=== PATIENT | male | born 1950 | race Caucasian/White ===

== ENCOUNTER 2024-06-30 13:20 | Outpatient (CLI) | payer MEDICARE, BC | END 2024-06-30 13:21 | disposition home or self-care (01) | LOC: CSHWCC 13:20 | PROVIDERS: ATTEND Nurse Practitioner Family | DX: N30.41 Irradiation cystitis with hematuria (principal) | CPT/HCPCS: 99213; G0463 ==

== ENCOUNTER 2024-07-17 14:30 | Outpatient (CLI) | payer MEDICARE, BC | END 2024-07-17 14:31 | disposition home or self-care (01) | LOC: CSHRAD 14:30 | PROVIDERS: ATTEND Nurse Practitioner Family | DX: N30.41 Irradiation cystitis with hematuria (principal) | CPT/HCPCS: 71046 ==

== ENCOUNTER 2024-08-04 08:56 | Outpatient (CLI) | payer MEDICARE, BC | END 2024-08-04 08:57 | disposition home or self-care (01) | LOC: CSHWCC 08:56 | PROVIDERS: ATTEND Nurse Practitioner Family | DX: N30.41 Irradiation cystitis with hematuria (principal) | CPT/HCPCS: G0277 ==

== ENCOUNTER 2024-08-05 09:00 | Outpatient (CLI) | payer MEDICARE, BC | END 2024-08-05 09:01 | disposition home or self-care (01) | LOC: CSHWCC 09:00 | PROVIDERS: ATTEND Nurse Practitioner Family | DX: T70.0XXD Otitic barotrauma, subsequent encounter (principal); N30.41 Irradiation cystitis with hematuria | CPT/HCPCS: G0277 ==

== ENCOUNTER 2024-08-06 08:54 | Outpatient (CLI) | payer MEDICARE, BC | END 2024-08-06 08:55 | disposition home or self-care (01) | LOC: CSHWCC 08:54 | PROVIDERS: ATTEND Nurse Practitioner Family | DX: T70.0XXD Otitic barotrauma, subsequent encounter (principal); N30.41 Irradiation cystitis with hematuria | CPT/HCPCS: G0277 ==

== ENCOUNTER 2024-08-07 09:21 | Outpatient (CLI) | payer MEDICARE, BC | END 2024-08-07 09:22 | disposition home or self-care (01) | LOC: CSHWCC 09:21 | PROVIDERS: ATTEND Nurse Practitioner Family | DX: T70.0XXD Otitic barotrauma, subsequent encounter (principal); N30.41 Irradiation cystitis with hematuria | CPT/HCPCS: G0277 ==

== ENCOUNTER 2024-08-08 09:50 | Outpatient (CLI) | payer MEDICARE, BC | END 2024-08-08 09:51 | disposition home or self-care (01) | LOC: CSHWCC 09:50 | PROVIDERS: ATTEND Nurse Practitioner Family | DX: T70.0XXD Otitic barotrauma, subsequent encounter (principal); N30.41 Irradiation cystitis with hematuria | CPT/HCPCS: G0277 ==

== ENCOUNTER 2024-08-11 09:04 | Outpatient (CLI) | payer MEDICARE, BC | END 2024-08-11 09:05 | disposition home or self-care (01) | LOC: CSHWCC 09:04 | PROVIDERS: ATTEND Nurse Practitioner Family | DX: T70.0XXD Otitic barotrauma, subsequent encounter (principal); N30.41 Irradiation cystitis with hematuria | CPT/HCPCS: G0277 ==

== ENCOUNTER 2024-08-12 08:33 | Outpatient (CLI) | payer MEDICARE, BC | END 2024-08-12 08:34 | disposition home or self-care (01) | LOC: CSHWCC 08:33 | PROVIDERS: ATTEND Nurse Practitioner Family | DX: T70.0XXD Otitic barotrauma, subsequent encounter (principal); N30.41 Irradiation cystitis with hematuria | CPT/HCPCS: G0277 ==

== ENCOUNTER 2024-08-13 08:31 | Outpatient (CLI) | payer MEDICARE, BC | END 2024-08-13 08:32 | disposition home or self-care (01) | LOC: CSHWCC 08:31 | PROVIDERS: ATTEND Nurse Practitioner Family | DX: T70.0XXD Otitic barotrauma, subsequent encounter (principal); N30.41 Irradiation cystitis with hematuria | CPT/HCPCS: G0277 ==

== ENCOUNTER 2024-08-15 08:19 | Outpatient (CLI) | payer MEDICARE, BC | END 2024-08-15 08:20 | disposition home or self-care (01) | LOC: CSHWCC 08:19 | PROVIDERS: ATTEND Nurse Practitioner Family | DX: T70.0XXA Otitic barotrauma, initial encounter (principal); N30.41 Irradiation cystitis with hematuria | CPT/HCPCS: G0277 ==

== ENCOUNTER 2024-08-18 09:05 | Outpatient (CLI) | payer MEDICARE, BC | END 2024-08-18 09:06 | disposition home or self-care (01) | LOC: CSHWCC 09:05 | PROVIDERS: ATTEND Nurse Practitioner Family | DX: N30.41 Irradiation cystitis with hematuria (principal); T70.0XXD Otitic barotrauma, subsequent encounter | CPT/HCPCS: G0277 ==

== ENCOUNTER 2024-08-19 09:23 | Outpatient (CLI) | payer MEDICARE, BC | END 2024-08-19 09:24 | disposition home or self-care (01) | LOC: CSHWCC 09:23 | PROVIDERS: ATTEND Nurse Practitioner Family | DX: T70.0XXD Otitic barotrauma, subsequent encounter (principal); N30.41 Irradiation cystitis with hematuria | CPT/HCPCS: G0277 ==

== ENCOUNTER 2024-08-22 09:19 | Outpatient (CLI) | payer MEDICARE, BC | END 2024-08-22 09:20 | disposition home or self-care (01) | LOC: CSHWCC 09:19 | PROVIDERS: ATTEND Nurse Practitioner Family | DX: T70.0XXD Otitic barotrauma, subsequent encounter (principal); N30.41 Irradiation cystitis with hematuria | CPT/HCPCS: G0277 ==

== ENCOUNTER 2024-08-25 09:34 | Outpatient (CLI) | payer MEDICARE, BC | END 2024-08-25 09:35 | disposition home or self-care (01) | LOC: CSHWCC 09:34 | PROVIDERS: ATTEND Nurse Practitioner Family | DX: T70.0XXD Otitic barotrauma, subsequent encounter (principal); N30.41 Irradiation cystitis with hematuria | CPT/HCPCS: G0277 ==

== ENCOUNTER 2024-08-26 08:00 | Outpatient (CLI) | payer MEDICARE, BC | END 2024-08-26 08:01 | disposition home or self-care (01) | LOC: CSHWCC 08:00 | PROVIDERS: ATTEND Nurse Practitioner Family | DX: T70.0XXD Otitic barotrauma, subsequent encounter (principal); N30.41 Irradiation cystitis with hematuria | CPT/HCPCS: G0277 ==

== ENCOUNTER 2024-08-28 08:30 | Outpatient (CLI) | payer MEDICARE, BC | END 2024-08-28 08:31 | disposition home or self-care (01) | LOC: CSHWCC 08:30 | PROVIDERS: ATTEND Family Medicine | DX: T70.0XXD Otitic barotrauma, subsequent encounter (principal); N30.41 Irradiation cystitis with hematuria | CPT/HCPCS: G0277 ==

== ENCOUNTER 2024-09-03 12:44 | Outpatient (CLI) | payer MEDICARE, BC | END 2024-09-03 12:45 | disposition home or self-care (01) | LOC: CSHWCC 12:44 | PROVIDERS: ATTEND Nurse Practitioner Family | DX: N30.41 Irradiation cystitis with hematuria (principal); T70.0XXD Otitic barotrauma, subsequent encounter | CPT/HCPCS: G0277 ==

== ENCOUNTER 2024-09-04 08:52 | Outpatient (CLI) | payer MEDICARE, BC | END 2024-09-04 08:53 | disposition home or self-care (01) | LOC: CSHWCC 08:52 | PROVIDERS: ATTEND Nurse Practitioner Family | DX: T70.0XXD Otitic barotrauma, subsequent encounter (principal); N30.41 Irradiation cystitis with hematuria | CPT/HCPCS: G0277 ==

== ENCOUNTER 2024-09-05 08:26 | Outpatient (CLI) | payer MEDICARE, BC | END 2024-09-05 08:27 | disposition home or self-care (01) | LOC: CSHWCC 08:26 | PROVIDERS: ATTEND Nurse Practitioner Family | DX: T70.0XXD Otitic barotrauma, subsequent encounter (principal); N30.41 Irradiation cystitis with hematuria | CPT/HCPCS: G0277 ==

== ENCOUNTER 2024-09-09 08:19 | Outpatient (CLI) | payer MEDICARE, BC | END 2024-09-09 08:20 | disposition home or self-care (01) | LOC: CSHWCC 08:19 | PROVIDERS: ATTEND Nurse Practitioner Family | DX: T70.0XXD Otitic barotrauma, subsequent encounter (principal); N30.41 Irradiation cystitis with hematuria | CPT/HCPCS: G0277 ==

== ENCOUNTER 2024-09-10 08:20 | Outpatient (CLI) | payer MEDICARE, BC | END 2024-09-10 08:21 | disposition home or self-care (01) | LOC: CSHWCC 08:20 | PROVIDERS: ATTEND Nurse Practitioner Family | DX: T70.0XXD Otitic barotrauma, subsequent encounter (principal); N30.41 Irradiation cystitis with hematuria | CPT/HCPCS: G0277 ==

== ENCOUNTER 2024-09-11 12:32 | Outpatient (CLI) | payer MEDICARE, BC | END 2024-09-11 12:33 | disposition home or self-care (01) | LOC: CSHWCC 12:32 | PROVIDERS: ATTEND Nurse Practitioner Family | DX: N30.41 Irradiation cystitis with hematuria (principal); T70.0XXA Otitic barotrauma, initial encounter | CPT/HCPCS: G0277 ==

== ENCOUNTER 2024-09-12 09:01 | Outpatient (CLI) | payer MEDICARE, BC | END 2024-09-12 09:02 | disposition home or self-care (01) | LOC: CSHWCC 09:01 | PROVIDERS: ATTEND Nurse Practitioner Family | DX: T70.0XXD Otitic barotrauma, subsequent encounter (principal); N30.41 Irradiation cystitis with hematuria | CPT/HCPCS: G0277 ==

== ENCOUNTER 2024-09-19 08:58 | Outpatient (CLI) | payer MEDICARE, BC | END 2024-09-19 08:59 | disposition home or self-care (01) | LOC: CSHWCC 08:58 | PROVIDERS: ATTEND Nurse Practitioner Family | DX: T70.0XXD Otitic barotrauma, subsequent encounter (principal); N30.41 Irradiation cystitis with hematuria | CPT/HCPCS: G0277 ==

== ENCOUNTER 2024-09-22 09:50 | Outpatient (CLI) | payer MEDICARE, BC | END 2024-09-22 09:51 | disposition home or self-care (01) | LOC: CSHWCC 09:50 | PROVIDERS: ATTEND Nurse Practitioner Family | DX: N30.41 Irradiation cystitis with hematuria (principal) | CPT/HCPCS: G0277 ==

== ENCOUNTER 2024-09-23 09:33 | Outpatient (CLI) | payer MEDICARE, BC | END 2024-09-23 09:34 | disposition home or self-care (01) | LOC: CSHWCC 09:33 | PROVIDERS: ATTEND Nurse Practitioner Family | DX: N30.41 Irradiation cystitis with hematuria (principal) | CPT/HCPCS: G0277 ==

== ENCOUNTER 2024-09-25 09:01 | Outpatient (CLI) | payer MEDICARE, BC | END 2024-09-25 09:02 | disposition home or self-care (01) | LOC: CSHWCC 09:01 | PROVIDERS: ATTEND Nurse Practitioner Family | DX: N30.41 Irradiation cystitis with hematuria (principal) | CPT/HCPCS: G0277 ==

== ENCOUNTER 2024-09-29 09:00 | Outpatient (CLI) | payer MEDICARE, BC | END 2024-09-29 09:01 | disposition home or self-care (01) | LOC: CSHWCC 09:00 | PROVIDERS: ATTEND Nurse Practitioner Family | DX: N30.41 Irradiation cystitis with hematuria (principal) | CPT/HCPCS: G0277 ==

== ENCOUNTER 2024-09-30 10:07 | Outpatient (CLI) | payer MEDICARE, BC | END 2024-09-30 10:08 | disposition home or self-care (01) | LOC: CSHWCC 10:07 | PROVIDERS: ATTEND Nurse Practitioner Family | DX: N30.41 Irradiation cystitis with hematuria (principal) | CPT/HCPCS: G0277 ==

== ENCOUNTER 2024-10-01 10:13 | Outpatient (CLI) | payer MEDICARE, BC | END 2024-10-01 10:14 | disposition home or self-care (01) | LOC: CSHWCC 10:13 | PROVIDERS: ATTEND Nurse Practitioner Family | DX: N30.41 Irradiation cystitis with hematuria (principal) ==

== ENCOUNTER 2024-10-02 09:23 | Outpatient (CLI) | payer MEDICARE, BC | END 2024-10-02 09:24 | disposition home or self-care (01) | LOC: CSHWCC 09:23 | PROVIDERS: ATTEND Nurse Practitioner Family | DX: N30.41 Irradiation cystitis with hematuria (principal) ==

== ENCOUNTER 2024-10-03 08:39 | Outpatient (CLI) | payer MEDICARE, BC | END 2024-10-03 08:40 | disposition home or self-care (01) | LOC: CSHWCC 08:39 | PROVIDERS: ATTEND Nurse Practitioner Family | DX: N30.41 Irradiation cystitis with hematuria (principal) | CPT/HCPCS: G0277 ==

== ENCOUNTER 2024-10-06 08:20 | Outpatient (CLI) | payer MEDICARE, BC | END 2024-10-06 08:21 | disposition home or self-care (01) | LOC: CSHWCC 08:20 | PROVIDERS: ATTEND Nurse Practitioner Family | DX: N30.41 Irradiation cystitis with hematuria (principal) | CPT/HCPCS: G0277 ==

== ENCOUNTER 2024-10-07 08:55 | Outpatient (CLI) | payer MEDICARE, BC | END 2024-10-07 08:56 | disposition home or self-care (01) | LOC: CSHWCC 08:55 | PROVIDERS: ATTEND Nurse Practitioner Family | DX: N30.41 Irradiation cystitis with hematuria (principal) | CPT/HCPCS: G0277 ==

== ENCOUNTER 2024-10-08 08:38 | Outpatient (CLI) | payer MEDICARE, BC | END 2024-10-08 08:39 | disposition home or self-care (01) | LOC: CSHWCC 08:38 | PROVIDERS: ATTEND Nurse Practitioner Family | DX: N30.41 Irradiation cystitis with hematuria (principal) | CPT/HCPCS: G0277 ==